=== PATIENT | female | born 1980 | race Caucasian/White ===

== ENCOUNTER 2017-02-04 09:59 | Emergency (ER) | payer MEDICAID ==
[~2017-02-04] VITALS: Ht 165.1 cm; Wt 57.0 kg
[2017-02-04 10:01] VITALS: BP 128/80
== END 2017-02-04 10:53 | disposition home or self-care (01) ==
LOC: ED 10:29
DX: S93.601A Unspecified sprain of right foot, initial encounter (principal); X58.XXXA Exposure to other specified factors, initial encounter; Y93.89 Activity, other specified; Y92.89 Other specified places as the place of occurrence of the external cause; Y99.8 Other external cause status
CPT/HCPCS: 99281